=== PATIENT | female | born 1950 | race Caucasian/White ===

== ENCOUNTER 2019-11-16 19:20 | Emergency (ER) | payer MEDICARE, SELFPAY ==
[2019-11-16 19:32] VITALS: BP 150/65; PULSE 93; RESP 20; TEMP 36.8; O2SAT 97
--- NOTE | 2019-11-16 19:53 | ED.GENADULT ---
HPI - General Adult General Chief complaint: Eye Problems Stated complaint: R/eye red Time Seen by Provider: 11/16/19 19:53 Source: patient and RN notes reviewed Mode of arrival: ambulatory Limitations: no limitations History of Present Illness HPI narrative: 69-year-old female presents with complains of right eye redness for 1 day. No treatment. Loreto says her came home and told her that her eye was red otherwise she didn't known. Denies pain, itching, or drainage from eye. Denies injury or exacerbating factors. No relieving factors. Intermittent mild cough otherwise no other URI symptoms. Denies blurred vision, double vision, sensation of foreign body, or pain of eye with movement. Some parts of this dictation were generated by voice recognition software and may contain typographical and/or grammatical inaccuracies. Related Data Home Medications Medication Instructions Recorded Confirmed No Home Medications 11/16/19 11/16/19 Allergies Allergy/AdvReac Type Severity Reaction Status Date / Time meperidine Allergy Mild Unknown Verified 11/16/19 19:35 Review of Systems Constitutional: Comments: CONSTITUTIONAL: Denies fever, chills, sweats. EYES: Denies visual changes. Complains of redness to RT eye. Denies itching, pain, or drainage. ENT: Denies rhinorrhea, congestion, sore throat, otalgia. CARDIOVASCULAR: Denies chest pain, palpitations, edema. RESPIRATORY: Denies dyspnea, wheezing. Intermittent mild dry cough. GASTROINTESTINAL: Denies abdominal pain, nausea, vomiting, diarrhea. GENITOURINARY: Denies dysuria, hematuria, abnormal discharge. SKIN: Denies rash or itching. MUSCULOSKELETAL: Denies acute back pain, joint pain, or myalgia. NEUROLOGIC: Denies numbness or focal weakness. PSYCHIATRIC: Denies anxiety or depression. All systems reviewed & are unremarkable except as noted in HPI and below [facility] Past Medical History Medical History (Updated 11/19/19 @ 18:38 by LAUREL Deluna) Lower back pain Scoliosis Thyroid nodule Surgical History Surgical History (Updated 11/19/19 @ 18:38 by LAUREL Deluna) History of spinal surgery Lumbar decompression and fusion History of thyroid surgery Thyroid nodule removal Family History Family History Sibling Family history of primary malignant neoplasm of liver Family history of malignant neoplasm of uterus Family history of coronary artery disease Family history of malignant neoplasm of breast in first degree relative Family history of malignant neoplasm of kidney Father Family history of coronary artery disease Mother Family history of coronary artery disease Social History Social History Smoking status: Never smoker Alcohol intake: never Comments At time of signature, I have reviewed and agree with nursing past medical, surgical, social, and family history. Please see nursing chart for further information. There is no relevant family history pertinent to the presenting complaint. Exam Narrative: Exam Narrative: GENERAL: This is a well-nourished, well-developed patient, in no apparent distress. HEAD: normocephalic, atraumatic. EYES: PERRL. Sclera clear/white to LT eye only. Inner RT eye sclera @ 3 and 4 o'clock with jesusita and clear without drainage, swelling, or tenderness on palpation. No visible or palpable Hordeolum present, no drainable abscess. No foreign body or lesions were noted on eversion of RT upper eyelid. No tenderness on palpation or erythema. No concern for Abbie-orbital cellulitis or orbital cellulitis. RT vision exam 20/20 and LT 20/15 with glasses. EARS: External ears normal, auditory canals clear and without drainage, TMs normal without perforation. Hearing grossly intact. NOSE: External nose normal with no obvious nasal discharge, nares with mild redness, no rhinorrhea. THROAT: Muc
[2019-11-16 20:09] VITALS: BP 103/54; PULSE 77; RESP 20; O2SAT 97
== END 2019-11-16 20:09 | disposition home or self-care (01) ==
PROVIDERS: Emergency Provider Nurse Practitioner Family; PCP Family Medicine
DX: H11.31 Conjunctival hemorrhage, right eye (principal); M41.9 Scoliosis, unspecified
CPT/HCPCS: 99211; G0463

== ENCOUNTER 2019-12-16 10:51 | Outpatient (CLI) | payer MEDICARE, SELFPAY ==
[2019-12-16 11:14] LABS: Basophils Percent Auto 0.4 % (0.2-1.2); Eosinophils Absolute Auto 0.1 K/mm3 (0-0.3); Eosinophils Percent Auto 1.9 % (0-4.4); Hematocrit 39.9 % (37.0-47.0); Hemoglobin 12.6 g/dL (12.0-15.0); Immature Granulocyte Absolute 0.01 K/mm3 (0.00-0.031); Immature Granulocyte Percent A 0.2 % (0-0.5); Lymphocytes Absolute Auto 1.91 K/mm3 (0.9-3.2); Lymphocytes Percent Auto 40.5 % (18.3-44.2); Mean Corpuscular HGB Conc 31.6 g/dl (32-36); Mean Corpuscular Hemoglobin 29.5 pg (26-34); Mean Corpuscular Volume 93.4 fl (80-100); Mean Platelet Volume 10.5 fl (7.4-10.4); Monocytes Absolute Auto 0.4 K/mm3 (0.1-0.6); Monocytes Percent Auto 7.8 % (2.6-8.5); Neutrophils Absolute Auto 2.3 K/mm3 (1.3-6.7); Neutrophils Percent Auto 49.2 % (45.5-73.1); Platelet Count Result 305 k/mm3 (150-375); Red Blood Count 4.27 M/mm3 (4.2-5.4); Red Cell Distribution Width 13.2 % (11.5-14.5); White Blood Count 4.7 K/mm3 (4.5-10.0)
[2019-12-16 11:21] LABS: Rheumatoid Factor < 8.6 IU/ML (<12)
[2019-12-16 11:33] LABS: Iron 127 ug/dL (37-170)
[2019-12-16 11:43] LABS: Percent Iron Saturation 41 % (20-50)
== END 2019-12-16 10:52 | disposition home or self-care (01) ==
LOC: ANHLAB 10:53
PROVIDERS: PCP Family Medicine; Visit Provider Family Medicine
DX: M19.90 Unspecified osteoarthritis, unspecified site (principal); D64.9 Anemia, unspecified
CPT/HCPCS: 36415; 83540; 83550; 85025; 86430

== ENCOUNTER → 2020-01-26 10:31 | Outpatient (CLI) | payer MEDICARE, SELFPAY ==
--- NOTE | ~2020-01-26 | MM_ITS ---
EXAMINATION: MM screening falguni BI w marbella HISTORY: Screening mammogram TECHNIQUE: Craniocaudal and mediolateral oblique 3-D tomosynthesis images were obtained and synthetic 2-D images were generated. CAD analysis was submitted and interpreted. COMPARISON: 12/28/2017, 10/02/2015 bilateral digital screening mammogram examinations BREAST PARENCHYMAL COMPOSITION: There are scattered areas of fibroglandular density. FINDINGS: There is no evidence of suspicious mass, calcification, or architectural distortion to sugg est malignancy in either breast. There has been no suspicious interval change. IMPRESSION: 1. No mammographic evidence of malignancy. 2. Recommend routine screening mammography in one year. BI-RADS Category 1: Negative Reviewed, dictated and finalized at location A.
== END ==
PROVIDERS: PCP Family Medicine; Visit Provider Obstetrics & Gynecology
DX: Z12.31 Encounter for screening mammogram for malignant neoplasm of breast (principal)
CPT/HCPCS: 77063; 77067

== ENCOUNTER 2020-02-10 09:47 | Outpatient (CLI) | payer MEDICARE, SELFPAY ==
[2020-02-13 14:11] LABS: Testosterone Free 8.6 pg/mL (0.1-6.4); Testosterone Total 107 ng/dL (2-45)
== END 2020-02-10 09:48 | disposition home or self-care (01) ==
PROVIDERS: PCP Family Medicine; Visit Provider Obstetrics & Gynecology
DX: R79.89 Other specified abnormal findings of blood chemistry (principal)
CPT/HCPCS: 36415; 84402; 84403

== ENCOUNTER 2020-04-19 10:25 | Outpatient (CLI) | payer MEDICARE, SELFPAY ==
[2020-04-23 15:07] LABS: Testosterone Free 0.7 pg/mL (0.1-6.4); Testosterone Total 11 ng/dL (2-45)
== END 2020-04-19 10:26 | disposition home or self-care (01) ==
PROVIDERS: PCP Family Medicine; Visit Provider Obstetrics & Gynecology
DX: R79.89 Other specified abnormal findings of blood chemistry (principal)
CPT/HCPCS: 36415; 84402; 84403

== ENCOUNTER 2021-03-11 16:39 | Emergency (ER) | payer MEDICARE, SELFPAY ==
--- NOTE | ~2021-03-11 | XR_ITS ---
EXAMINATION: XR wrist LT min 3V DATE: 03/11/2021 17:05 INDICATION: Left-sided wrist pain post fall TECHNIQUE: Posteroanterior, ulnar deviation, oblique, and lateral views of the left wrist were obtain ed. COMPARISON: none FINDINGS: Diffuse osteopenia. 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 Alignment is otherwise normal. No fracture. Additional moderate severity osteoarthritis at the fifth distal phalangeal joint and mild osteoarthritis at the second an d fourth distal interphalangeal joints. Soft tissues are unremarkable. IMPRESSION: 1. No acute osseous abnormality. Reviewed, dictated and finalized at location A.
--- NOTE | ~2021-03-11 | XR_ITS ---
[XR ribs LT 2V w CXR 2V ] INDICATION: Left rib pain after fall TECHNIQUE: Frontal projection of the upper left ribs, frontal projection of the lower left ribs, obli que projection of all the left ribs, frontal inspiratory chest x-ray for interpretation. FINDINGS: There are no displaced rib fractures identified. There are no soft tissue abnormality see n. The lungs are clear. There is scoliosis. There are surgical changes of the lumbar spine. IMPRESSION: 1:No displaced rib fractures. Reviewed, dictated and finalized at location A.
[2021-03-11 16:50] VITALS: BP 131/78; PULSE 88; RESP 16; TEMP 37; O2SAT 99
--- NOTE | 2021-03-11 17:21 | ED.GENADULT ---
HPI - General Adult General Chief complaint: Fall Stated complaint: fall/rib pain Time Seen by Provider: 03/11/21 16:55 Source: patient and RN notes reviewed Mode of arrival: ambulatory Limitations: no limitations History of Present Illness HPI narrative: 70-year-old female presents with complaints of left rib cage pain status post fall for the past 4.5 hours. She reports while at a family member's house with a step down room, she kept walking and fell on her left side injuring left rib and left wrist. Loreto reports increasing pain throughout the day. Excedrin, last today at 10:00AM with little relief. Denies difficulty breathing or cough. Denies hitting head, seizure activity, syncopal episode, dizziness, or loss consciousness. No bruising area. No deformity. Exacerbating factors consist of taking a deep breath palpation of area. No relieving factors. Denies fever. No cardiac chest pain, wheezing, or shortness of breath. Denies abdominal pain, nausea, and vomiting. Tolerating intake well. LMP postmenopausal. Remains active. The patient reports she was diagnosed with COVID-19 August,. The patient reports she is not waiting for the results of a COVID-19 lab test. The patient reports she do not have chills, weakness, or fatigue. The patient reports she do not have a new or worsening cough. The patient reports she do not have any rhinorrhea, congestion, sore throat, loss of taste or smell, and diarrhea. Patient reports recently traveled to [place] within 2 weeks. Denies concerns for COVID-19 or exposures. At this time, patient is not suspected of having COVID-19. Complaints of left wrist pain for the past 4.5 hours. ?Excedrin, last today at 10:00AM with little relief. ?Symptoms worsen throughout the day. ?No numbness or tingling. No radiating pain. ?No swelling. No immobility, suspected foreign body, or abuse. Exacerbating factors consist of movement. Some relieving factor is rest. ?The dominant hand is the Right hand. Some parts of this dictation were generated by voice recognition software and may contain typographical and/or grammatical inaccuracies. Related Data Allergies Allergy/AdvReac Type Severity Reaction Status Date / Time meperidine Allergy Mild Unknown Verified 12/16/19 09:04 Review of Systems Review of Systems: Narrative: CONSTITUTIONAL: Denies fever, chills, sweats. EYES: Denies visual changes, redness, discharge. ENT: Denies rhinorrhea, congestion, sore throat, otalgia. CARDIOVASCULAR: Denies chest pain, palpitations, edema. RESPIRATORY: Denies dyspnea, wheezing, cough. GASTROINTESTINAL: Denies abdominal pain, nausea, vomiting, diarrhea. GENITOURINARY: Denies dysuria, hematuria, abnormal discharge. SKIN: Denies rash or itching. MUSCULOSKELETAL: Denies acute back pain, myalgia. Complains of left wrist pain, acute left rib cage pain status post fall. NEUROLOGIC: Denies numbness or focal weakness. PSYCHIATRIC: Denies anxiety or depression. All systems reviewed & are unremarkable except as noted in HPI and below. [facility] Past Medical History Medical History Arthritis Lower back pain Scoliosis Thyroid nodule Vision abnormalities Surgical History Surgical History History of spinal surgery Lumbar decompression and fusion History of thyroid surgery Thyroid nodule removal Family History Family History Sibling Family history of primary malignant neoplasm of liver Family history of malignant neoplasm of uterus Family history of coronary artery disease Family history of malignant neoplasm of breast in first degree relative Family history of malignant neoplasm of kidney Father Family history of coronary artery disease Mother Family history of coronary artery disease Social History Social History (Updated
[2021-03-11] MEDS: KETOROLAC (*BKC) 60 MG/2 ML VIAL IM (17:26)
== END 2021-03-11 17:54 | disposition home or self-care (01) ==
PROVIDERS: Emergency Provider Nurse Practitioner Family; PCP Family Medicine
DX: S20.212A Contusion of left front wall of thorax, initial encounter (principal); S63.502A Unspecified sprain of left wrist, initial encounter; W19.XXXA Unspecified fall, initial encounter; M19.90 Unspecified osteoarthritis, unspecified site; M41.9 Scoliosis, unspecified
CPT/HCPCS: 71046; 71100; 73110; 96372; 99214; G0463; J1885

== ENCOUNTER → 2021-03-27 14:13 | Outpatient (CLI) | payer MEDICARE, SELFPAY ==
--- NOTE | ~2021-03-27 | MM_ITS ---
EXAMINATION: MM screening falguni BI w marbella HISTORY: Screening mammogram TECHNIQUE: Craniocaudal and mediolateral oblique 3-D tomosynthesis images were obtained and synthetic 2-D images were generated. CAD analysis was submitted and interpreted. COMPARISON: 01/26/2020, 12/28/2017, 10/02/2015 bilateral digital screening mammogram examinations BREAST PARENCHYMAL COMPOSITION: There are scattered areas of fibroglandular density. FINDINGS: There is no evidence of suspicious mass, calcification, or architectural distortion to sugg est malignancy in either breast. There has been no suspicious interval change. IMPRESSION: 1. No mammographic evidence of malignancy. 2. Recommend routine screening mammography in one year. BI-RADS Category 1: Negative Reviewed, dictated and finalized at location A.
== END ==
PROVIDERS: PCP Family Medicine; Visit Provider Obstetrics & Gynecology
DX: Z12.31 Encounter for screening mammogram for malignant neoplasm of breast (principal)
CPT/HCPCS: 77063; 77067

== ENCOUNTER 2022-08-22 01:30 | Day surgery (SDC) | payer MEDICARE, SELFPAY ==
[2022-08-18 10:39] VITALS: BMI 22.8
[2022-08-22 09:57] VITALS: BP 109/96; PULSE 82; RESP 20; TEMP 36.1; O2SAT 98; BMI 22.8
[2022-08-22] MEDS: LACTATED RINGERS 1,000 ML 150 ML IV CONT (10:10)
--- NOTE | 2022-08-22 10:18 | WPDANESEPPF ---
Anes - Initial Pre Proc Eval Procedure: Operation Date: 08/22/22 11:00 Proposed Procedures p Screening Colonoscopy - Yandel Koch MD Date/Time: 08/22/22 10:18 Surgeon: Yandel Koch MD Pre Op Diagnosis: neoplasm screening Patient Data Age: 71 Gender: F Height: 1.6 m Weight: 58.6 kg Last Vital Signs Temp 97 F L 08/22/22 09:57 Pulse 82 08/22/22 09:57 Resp 20 08/22/22 09:57 BP 109/96 H 08/22/22 09:57 Pulse Ox 98 08/22/22 09:57 O2 Del Method Room Air 08/22/22 09:57 Allergies Allergy/AdvReac Type Severity Reaction Status Date / Time meperidine Allergy Mild Unknown Verified 08/22/22 09:55 Home Medications Medication Instructions Recorded Confirmed Type ibuprofen 600 mg tablet 600 mg PO QID PRN pain #60 tabs 03/11/21 08/18/22 Rx cetirizine 10 mg tablet (Zyrtec) 10 mg PO DAILY PRN allergy 10/25/21 08/18/22 Rx symptoms #90 tabs [id number]-blkblfbhxowfr-wohualez 250 1 tablet PO Q4-6H PRN Pain 08/18/22 08/18/22 History mg-250 mg-65 mg tablet (Excedrin Extra Strength) ckqrijn-esdizgqpkttwl-aybewzap 250 1 tablet PO Q4-6H PRN Migraine 08/18/22 08/18/22 History mg-250 mg-65 mg tablet (Excedrin Headache Migraine) Patient hx anesthesia problems: none Family hx anesthesia problems: none Results Review: All pre-operative results and documents have been reviewed as part of the pre-operative evaluation. [facility] Past Medical History Medical History Arthritis BMI 22.0-22.9, adult Lower back pain Scoliosis Thyroid nodule Vision abnormalities Surgical History Surgical History History of spinal surgery Lumbar decompression and fusion History of thyroid surgery Thyroid nodule removal Family History Family History Sibling Family history of primary malignant neoplasm of liver Family history of malignant neoplasm of uterus Family history of coronary artery disease Family history of malignant neoplasm of breast in first degree relative Family history of malignant neoplasm of kidney Father Family history of coronary artery disease Mother Family history of coronary artery disease Sibling Cerebrovascular accident Dementia Heart disease Diabetes mellitus Social History Social History Smoking status: Never smoker Second hand tobacco smoke exposure: No Alcohol intake: never Substance use: never Substance use type: does not use Living arrangements: with family 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 Gender identity (if verbalized by the patient): Female Sexual Orientation (if Verbalized by the Patient): Straight or Heterosexual Spiritual care concerns: No Anes - Eval Final PreProcedure Day of Procedure 08/22/22 10:18 Patient weight: normal Heart: regular rate and rhythm Lungs: clear to auscultation Airway: Mallampati scale class II Neurological: alert and oriented Last oral intake: >/= 8 hours ASA classification: II Emergent: no Anesthetic plan: proceed Anesthesia type and monitoring: general GIVS and standard monitoring Results Review: All pre-operative results and documents have been reviewed as part of the pre-operative evaluation. Informed Consent: The patient's anesthetic plan and its attendant risks and benefits were discussed with the patient/family/POA. Questions were solicited and answers provided to the satisfaction of the patient/family/POA.
--- NOTE | 2022-08-22 10:26 | PM.HPGS ---
History of Present Illness History of Present Illness Consent: Risks, benefits, and alternatives have been discussed and questions answered. Patient agrees to proceed with procedure. Chief complaint: neoplasm screening Narrative: Loreto Payton is a 71 year old female here for screening colonoscopy, last one more than 5 years ago. Review of Systems Constitutional: Constitutional: Denies headache(s) and Denies weakness Eyes: Eyes: Denies blurry vision ENT: Reports Normal hearing present, Denies headache(s) and Denies neck pain Cardiovascular: Cardiovascular: Denies chest pain and Denies dyspnea Respiratory: Respiratory: Denies dyspnea Gastrointestinal: Gastrointestinal: Reports no additional gastrointestinal complaints Genitourinary: Genitourinary: Denies dysuria Musculoskeletal: Musculoskeletal: Denies neck pain Integumentary/Breasts: Skin/Breast: Denies dry skin Neurologic: Reports Normal hearing present, Denies headache(s) and Denies weakness Psychiatric: Psychiatric: Denies anxiety Endocrine: Endocrine: Denies change in body appearance Hematologic/Lymphatic: Hematologic/Lymphatic: Denies easy bleeding Allergic/Immunologic: Allergic/Immunologic: Denies urticaria PMFSH Past Medical History Medical History Arthritis BMI 22.0-22.9, adult Lower back pain Scoliosis Thyroid nodule Vision abnormalities Surgical History Surgical History History of spinal surgery Lumbar decompression and fusion History of thyroid surgery Thyroid nodule removal Family History Family History Sibling Family history of primary malignant neoplasm of liver Family history of malignant neoplasm of uterus Family history of coronary artery disease Family history of malignant neoplasm of breast in first degree relative Family history of malignant neoplasm of kidney Father Family history of coronary artery disease Mother Family history of coronary artery disease Sibling Cerebrovascular accident Dementia Heart disease Diabetes mellitus Social History Social History Smoking status: Never smoker Second hand tobacco smoke exposure: No Alcohol intake: never Substance use: never Substance use type: does not use Living arrangements: with family 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 Gender identity (if verbalized by the patient): Female Sexual Orientation (if Verbalized by the Patient): Straight or Heterosexual Spiritual care concerns: No Meds Home Medications and Allergies Home Medications Medication Instructions Recorded Confirmed Type ibuprofen 600 mg tablet 600 mg PO QID PRN pain #60 tabs 03/11/21 08/18/22 Rx cetirizine 10 mg tablet (Zyrtec) 10 mg PO DAILY PRN allergy 10/25/21 08/18/22 Rx symptoms #90 tabs ksptjvo-bfvyivjurzght-jpgieslo 250 1 tablet PO Q4-6H PRN Pain 08/18/22 08/18/22 History mg-250 mg-65 mg tablet (Excedrin Extra Strength) [id number]-wnanzuszfpsgz-qdyyfxpb 250 1 tablet PO Q4-6H PRN Migraine 08/18/22 08/18/22 History mg-250 mg-65 mg tablet (Excedrin Headache Migraine) Allergies Allergy/AdvReac Type Severity Reaction Status Date / Time meperidine Allergy Mild Unknown Verified 08/22/22 09:55 Vital Signs Vital Signs - 24 hr 08/22/22 09:57 Temperature 97 F L Pulse Rate 82 Respiratory Rate 20 Blood Pressure 109/96 H Pulse Oximetry 98 Oxygen Delivery Room Air Exam Const: General: comfortable and no acute distress HENMT: Face/Nose/Sinus: Normal nares present Eyes: General: appearance normal, both eyes and all related structures Neck: Neck: no JVD Resp: Auscultation: clear to auscultation bilaterally Cardio: Rate: regular rate Rhythm: reg
[2022-08-22 10:54] VITALS: BP 120/68; PULSE 65; RESP 20; O2SAT 98
[2022-08-22 11:04] VITALS: BP 122/71; PULSE 65; RESP 20; O2SAT 98
[2022-08-22 11:14] VITALS: BP 127/76; PULSE 64; RESP 16; O2SAT 98
== END 2022-08-22 11:29 | disposition home or self-care (01) ==
PROVIDERS: PCP Family Medicine; Visit Provider Internal Medicine Gastroenterology
PROC: 0DJD8ZZ Inspection of Lower Intestinal Tract, Via Natural or Artificial Opening Endoscopic (ICD-10-PCS; CPT 45378; principal; 2022-08-22 11:00)
DX: Z12.11 Encounter for screening for malignant neoplasm of colon (principal); D12.0 Benign neoplasm of cecum; K57.30 Diverticulosis of large intestine without perforation or abscess without bleeding; K64.8 Other hemorrhoids
CPT/HCPCS: 45385; 88305; J2704; J7120

== ENCOUNTER 2022-11-05 08:34 | Outpatient (CLI) | payer MEDICARE, SELFPAY ==
--- NOTE | ~2022-11-05 | US_ITS ---
EXAMINATION: US carotid duplex BI DATE: 11/05/2022 09:15 INDICATION: Vertigo. Unspecified visual disturbance. TECHNIQUE: Grayscale, color Doppler, and pulsed Doppler images of the cervical carotid arteries were obtained. The degree of vessel stenosis is placed in one of the following categories: normal, <50%, 5 0-69%, >=70% but less than near-occlusion, near-occlusion, or total occlusion. Note that percent sten osis relative to normal distal artery lumen diameter is indirectly measured from velocity measurement s as described by Markie, et al. Radiology 2003; 229:340-346. COMPARISON: None. FINDINGS: RIGHT: The right common carotid artery (CCA) peak systolic velocity (PSV) is 72 cm/s. The right internal car otid artery (ICA) PSV is 80 cm/s. The right ICA end-diastolic velocity (EDV) is 33 cm/s. The right IC A/CCA PSV ratio is 1.1. Grayscale and color Doppler images yield an estimate of <50% diameter reducti on from plaque in the ICA. The external carotid artery (ECA) PSV is 97 cm/s. There is antegrade flow in the right vertebral artery. LEFT: The left CCA PSV is 80 cm/s. The left ICA PSV is 58 cm/s. The left ICA EDV is 18 cm/s. The left ICA/C CA PSV ratio is 0.7. Grayscale and color Doppler images yield an estimate of <50% diameter reduction from plaque in the ICA. The ECA PSV is 86 cm/s. There is antegrade flow in the left vertebral artery. IMPRESSION: 1. <50% stenosis in the right internal carotid artery. 2. <50% stenosis in the left internal carotid artery. Reviewed, dictated and finalized at location A. [facility]
--- NOTE | 2022-11-05 09:41 | ECHO_ITS ---
Patient Info Name: Loreto Payton Age: 72 years : 1950 Gender: Female Ht: 63 in Wt: 130 lbs BSA: 1.63 m2 HR: 66 bpm BP: 135 / 77 mmHg Technical Quality: Good Exam Date: 11/05/2022 10:14 AM Exam Location: [facility] Patient Status: Outpatient Admit Date: 11/05/2022 Staff Ordering Physician: Christen Menendez Horologist: Lacy Robison RDCS Attending Provider: Christen Menendez Referring Physician: Gemma LOKCWOOD; Exam Type: CA echo doppler color flow Study Info Indications R55 - Syncope and collapse Complete two-dimensional, color flow and Doppler transthoracic echocardiogram is performed. Summary 1. Complete two-dimensional, color flow and Doppler transthoracic echocardiogram is performed. 2. Left ventricular chamber dimension is normal. 3. Ventricular septum is sigmoid shaped. No LVOT obstruction. 4. Left ventricular systolic function is normal, estimated at 60-65%. 5. The left ventricular diastolic function is grade I diastolic dysfunction. 6. E/e' 6 is not elevated. 7. There is mild aortic valve sclerosis. 8. There is mild aortic valve regurgitation. Left Ventricle E/e' 6 is not elevated. Ventricular septum is sigmoid shaped. No LVOT obstruction. Left ventricular chamber dimension is normal. Left ventricular systolic function is normal, estimated at 60-65%. The left ventricular diastolic function is grade I diastolic dysfunction. Right Ventricle Right ventricular systolic function is normal and with normal TAPSE 1.8 cm. Right ventricular chamber dimension is normal. Left Atria Left atrial chamber dimension is normal. Right Atria Right atrial chamber dimension is normal. Aortic Valve The aortic valve is trileaflet. There is mild aortic valve sclerosis. There is no aortic valve stenosis. There is mild aortic valve regurgitation. Pulmonic Valve There is no pulmonic regurgitation. Mitral Valve There is no mitral valve stenosis. There is no mitral valve regurgitation. Tricuspid Valve There is no tricuspid valve regurgitation. Pericardium/Pleural There is no pericardial effusion. Inferior Vena Cava Normal inferior vena cava with >50% collapse upon inspiration consistent with normal right atrial pressure, 5 mmHg. Aorta The aortic root size at the sinus of Valsalva is normal. Left Ventricular Outflow Tract Name Value Normal LVOT 2D LVOT Diameter 2.0 cm LVOT Doppler LVOT Peak Gradient 3 mmHg LVOT Mean Gradient 2 mmHg LVOT VTI 17 cm LVOT VTI/AV VTI Ratio 0.7 LVOT Stroke Volume 52 ml LVOT CO 3.8 l/min LVOT CI 2.3 l/min/m2 Mitral Valve Name Value Normal MV Doppler
[2022-11-05 09:50] LABS: Hematocrit 39.4 % (37.0-47.0); Hemoglobin 12.5 g/dL (12.0-15.0); Mean Corpuscular HGB Conc 31.7 g/dl (32-36); Mean Corpuscular Hemoglobin 30.6 pg (26-34); Mean Corpuscular Volume 96.3 fl (80-100); Mean Platelet Volume 9.5 fl (7.4-10.4); Platelet Count Result 347 k/mm3 (150-375); Red Blood Count 4.09 M/mm3 (4.2-5.4); Red Cell Distribution Width 13.2 % (11.5-14.5); White Blood Count 6.1 K/mm3 (4.5-10.0)
[2022-11-05 10:05] LABS: Alanine Aminotransferase 17 U/L (6-35); Albumin Level 4.1 g/dL (3.5-5.1); Alkaline Phosphatase 64 U/L (38-126); Anion Gap 4 mmol/L (8-16); Aspartate Amino Transferase 20 U/L (14-36); Bilirubin,Total 0.4 mg/dL (0.2-1.3); Blood Urea Nitrogen 19 mg/dL (7-17); Calcium 8.4 mg/dL (8.4-10.2); Carbon Dioxide 31 mmol/L (22-30); Chloride 105 mmol/L (98-107); Cholesterol 212 mg/dL (0-200); Estimated Glomerular Filt Rate > 60; Glucose 100 mg/dL (65-110); HDL Direct 84 mg/dL; Sodium 140 mmol/L (137-145); Triglycerides 64 mg/dL (<150)
[2022-11-05 10:16] LABS: LDL Cholesterol Direct 89 mg/dL
== END 2022-11-05 08:35 | disposition home or self-care (01) ==
PROVIDERS: PCP Family Medicine; Visit Provider Nurse Practitioner Family
DX: Z12.11 Encounter for screening for malignant neoplasm of colon (principal); R55 Syncope and collapse; H53.9 Unspecified visual disturbance; E78.5 Hyperlipidemia, unspecified; M79.643 Pain in unspecified hand; D64.9 Anemia, unspecified; I65.23 Occlusion and stenosis of bilateral carotid arteries; I35.1 Nonrheumatic aortic (valve) insufficiency
CPT/HCPCS: 36415; 80053; 80061; 84443; 85027; 93306; 93880

== ENCOUNTER 2023-01-14 10:47 | Outpatient (CLI) | payer MEDICARE, SELFPAY ==
[2023-01-17 20:31] LABS: Varicella IgM Antibody <=0.90 (<=0.90)
== END 2023-01-14 10:48 | disposition home or self-care (01) ==
PROVIDERS: PCP Family Medicine; Visit Provider Internal Medicine Cardiovascular Disease
DX: R55 Syncope and collapse (principal); R94.31 Abnormal electrocardiogram [ECG] [EKG]; I35.1 Nonrheumatic aortic (valve) insufficiency; I35.8 Other nonrheumatic aortic valve disorders; Z13.9 Encounter for screening, unspecified
CPT/HCPCS: 36415; 86787

== ENCOUNTER 2023-08-17 12:41 | Emergency (ER) | payer MEDICARE, SELFPAY ==
--- NOTE | 2023-08-17 12:48 | ED.URI ---
HPI - URI/Sore Throat General Chief Complaint: Upper Respiratory Infection Stated Complaint: Cough,Bilateralt Ear Irritation,Sore Throat Time Seen by Provider: 08/17/23 12:51 Source: patient, RN notes reviewed and old records reviewed Mode of arrival: ambulatory Limitations: no limitations History of Present Illness HPI Narrative: 72-year-old female presents to the [facility] with complaints of cough, bilateral ear discomfort in a sore throat. Symptoms started on Thursday, 5 days ago. Denies any fevers. Patient reports intermittent dry and productive cough. Patient has a history bronchitis and pneumonia this time of year. States that she has tried calling her doctor twice today and was unable to get through. Related Data Home Medications Medication Instructions Recorded Confirmed cfdeikm-pyttqidszbsdz-vonnchmi 250 1 tablet PO Q4-6H PRN Pain 08/18/22 08/17/23 mg-250 mg-65 mg tablet (Excedrin Extra Strength) estradiol 0.01% (0.1 mg/gram) 1 applic vaginal DAILY 08/17/23 08/17/23 vaginal cream Allergies Allergy/AdvReac Type Severity Reaction Status Date / Time No Known Allergies Allergy Verified 08/17/23 12:42 Review of Systems Review of Systems: All systems reviewed & are unremarkable except as noted in HPI and below Constitutional: Constitutional: Reports as per HPI Eyes: Eyes: Reports no additional eye complaints ENT: Reports as per HPI Cardiovascular: Cardiovascular: Reports no additional cardiovascular complaints, Denies chest pain and Denies dyspnea Respiratory: Respiratory: Reports as per HPI, Reports chest congestion, Reports cough and Denies dyspnea Gastrointestinal: Gastrointestinal: Reports no additional gastrointestinal complaints, Denies abdominal pain, Denies nausea and Denies vomiting Musculoskeletal: Musculoskeletal: Reports no additional musculoskeletal complaints Integumentary/Breasts: Skin/Breast: Reports system reviewed and no additional complaints, except as docu Neurologic: Reports system reviewed and no additional complaints, except as documented Psychiatric: Psychiatric: Reports no additional psychiatric complaints Allergic/Immunologic: Allergic/Immunologic: Reports no additional allergic/immunologic complaints [facility] Past Medical History Medical History Allergies Arthritis BMI 22.0-22.9, adult Contracture of palmar fascia (Dupuytren's) Headache Lower back pain Scoliosis Thyroid nodule Vision abnormalities Surgical History Surgical History History of sinus surgery balloon History of spinal surgery Lumbar decompression and fusion History of thyroid surgery Thyroid nodule removal Family History Family History Sibling Family history of primary malignant neoplasm of liver Family history of malignant neoplasm of uterus Family history of coronary artery disease Family history of malignant neoplasm of breast in first degree relative Family history of malignant neoplasm of kidney Depression Father Family history of coronary artery disease Heart disease Mother Family history of coronary artery disease Heart disease Sibling Cerebrovascular accident Dementia Heart disease Diabetes mellitus Other Heart disease Social History Social History Smoking status: Never smoker Second hand tobacco smoke exposure: No Alcohol intake: never Substance use: never Substance use type: does not use Living arrangements: with family Occupation/Education: occupation 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
[2023-08-17 12:52] VITALS: BP 123/67; PULSE 73; RESP 18; TEMP 36.4; O2SAT 98
== END 2023-08-17 13:20 | disposition home or self-care (01) ==
PROVIDERS: Emergency Provider Nurse Practitioner; PCP Family Medicine
DX: J40 Bronchitis, not specified as acute or chronic (principal); J01.40 Acute pansinusitis, unspecified; M19.90 Unspecified osteoarthritis, unspecified site; M41.9 Scoliosis, unspecified
CPT/HCPCS: 99213; G0463

== ENCOUNTER 2024-01-04 13:44 | Emergency (ER) | payer MEDICARE, SELFPAY ==
--- NOTE | 2024-01-04 13:46 | ED.URI ---
HPI - URI/Sore Throat General Chief Complaint: Upper Respiratory Infection Stated Complaint: Sinus Problems and Cough Time Seen by Provider: 01/04/24 13:46 Source: patient Mode of arrival: ambulatory Limitations: no limitations History of Present Illness HPI Narrative: Loreto is a 73-year-old female patient presenting to the clinic today with complaints of sinus congestion and cough since . She reports she is bringing up some yellow phlegm. Denies shortness of breath, chest pain, fever, chills, or body aches MD elicited complaint: sore throat and nasal congestion Related Data Home Medications Medication Instructions Recorded Confirmed xlkefla-hfrohiqdforhw-dxcjtqlm 250 1 tablet PO Q4-6H PRN Pain 08/18/22 01/04/24 mg-250 mg-65 mg tablet (Excedrin Extra Strength) estradiol 0.01% (0.1 mg/gram) 1 applic vaginal DAILY 08/17/23 01/04/24 vaginal cream Allergies Allergy/AdvReac Type Severity Reaction Status Date / Time No Known Allergies Allergy Verified 01/04/24 13:52 Review of Systems Review of Systems: Pertinent positives per HPI. Patient denies any fever, chills, rash, headache, visual changes, dizziness, shortness of breath, chest pain, palpitations, nausea, vomiting, diarrhea, constipation, abdominal pain, or any urinary issues. [facility] Past Medical History Medical History Allergies Arthritis BMI 22.0-22.9, adult Contracture of palmar fascia (Dupuytren's) Headache Lower back pain Scoliosis Thyroid nodule Vision abnormalities Surgical History Surgical History History of sinus surgery balloon History of spinal surgery Lumbar decompression and fusion History of thyroid surgery Thyroid nodule removal Family History Family History Sibling Family history of primary malignant neoplasm of liver Family history of malignant neoplasm of uterus Family history of coronary artery disease Family history of malignant neoplasm of breast in first degree relative Family history of malignant neoplasm of kidney Depression Father Family history of coronary artery disease Heart disease Mother Family history of coronary artery disease Heart disease Sibling Cerebrovascular accident Dementia Heart disease Diabetes mellitus Other Heart disease Social History Social History (Reviewed 08/17/23 @ 19:10 by ANA Escoto Smoking status: Never smoker Second hand tobacco smoke exposure: No Alcohol intake: never Substance use: never Substance use type: does not use Living arrangements: with family Occupation/Education: occupation 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 There is no relevant family history pertinent to the patient complaint. Exam Narrative: General: Well-developed, well nourished, in no apparent distress Head: Normocephalic, atraumatic Eyes: Pupils equally round and reactive to light bilaterally, EOM intact, sclera and conjunctive clear, no discharge, lids normal Ears: TMs intact and congested, ear canals clear, no drainage, grossly hearing normal. Nose: Nares patent, clear nasal discharge, mild inflammation, no sinus tenderness. Mouth: Oral pharynx without lesions or masses, good dentition, MMM. Postnasal drip Neck: Supple, trachea midline, no enlargement of anterior or posterior cervical nodes, no thyroid masses or goiter palpable. Cardio: Regular rate and rhythm, s1 and s2 normal, no murmur appreciated. Resp: Clear to auscultation bilaterally, n
[2024-01-04 13:52] VITALS: BP 92/64; PULSE 83; RESP 18; TEMP 36.6; O2SAT 98
== END 2024-01-04 14:19 | disposition home or self-care (01) ==
PROVIDERS: Emergency Provider Nurse Practitioner Family; PCP Family Medicine
DX: R09.82 Postnasal drip (principal); J30.89 Other allergic rhinitis; M19.90 Unspecified osteoarthritis, unspecified site; M41.9 Scoliosis, unspecified; Z79.82 Long term (current) use of aspirin
CPT/HCPCS: 99213; G0463

== ENCOUNTER 2025-04-18 13:51 | Outpatient (CLI) | payer MEDICARE, SELFPAY ==
--- NOTE | ~2025-04-18 | MM_ITS ---
EXAMINATION: MM screening falguni BI w marbella HISTORY: Screening mammogram, family history of breast cancer in her sister. TECHNIQUE: Craniocaudal and mediolateral oblique 3-D tomosynthesis images were obtained and synthetic 2-D images were generated. CAD analysis was submitted and interpreted. COMPARISON: 03/27/2021, 01/26/2020 BREAST PARENCHYMAL COMPOSITION:Not Dense. There are scattered areas of fibroglandular density. FINDINGS: No suspicious mass, calcification, or architectural distortion are identified in either nadege ast to suggest malignancy. There has been no suspicious interval change. IMPRESSION: No mammographic evidence of malignancy. Recommend routine screening mammography in one year. BI-RADS Category 1: Negative Reviewed, dictated and finalized at location .
== END 2025-04-18 13:52 | disposition home or self-care (01) ==
PROVIDERS: PCP Obstetrics & Gynecology; Visit Provider Nurse Practitioner
DX: Z12.31 Encounter for screening mammogram for malignant neoplasm of breast (principal)
CPT/HCPCS: 77063; 77067

== ENCOUNTER 2025-06-24 14:02 | Emergency (ER) | payer OTHER, MEDICARE, SELFPAY ==
--- NOTE | ~2025-06-24 | XR_ITS ---
EXAMINATION: XR finger 3rd RT min 2V DATE: 06/24/2025 14:51 INDICATION: Pain at the right third proximal interphalangeal joint post fall 2 weeks prior TECHNIQUE: Dorsal palmar, lateral and 2 oblique views of the right third digit were obtained COMPARISON: Right fourth digit radiographs dated 07/19/2014 FINDINGS: Bone alignment is normal. Again seen is an old fracture deformity tuft of the right fourth distal phalanx. No acute fractures. Severe osteoarthritis with central erosions with gullwing configuration consistent with erosive osteoarthritis at the third distal interphalangeal joint. Mild osteoarthritis at the second proximal interphalangeal and fourth distal interphalangeal joints. Additional severe likely erosive osteoarthritis suggested but incompletely visualized at the second distal interphalangeal joint. Mild reticular soft tissue swelling at the third metacarpophalangeal joint. IMPRESSION: 1. Old healed fracture deformity of the right fourth distal phalanx. No acute osseous abnormality. 2. 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 Reviewed, dictated and finalized at location A. IMPRESSION: 1. Old healed fracture deformity of the right fourth distal phalanx. No acute o sseous abnormality. 2. Mild polyarticular osteoarthritis at a few of the interphalangeal joints inc luding severe erosive osteoarthritis at the third and likely second distal inte rphalangeal joints.
[2025-06-24 14:34] VITALS: BP 126/67; PULSE 82; RESP 16; TEMP 36.3; O2SAT 99
--- NOTE | 2025-06-24 14:54 | ED.UPPEXIN ---
HPI - Extremity Injury (Upper) General Chief Complaint: Extremity Injury, Upper Stated Complaint: INJURED R MIDDLE FINGER Time Seen by Provider: 06/24/25 14:54 Source: patient Mode of arrival: ambulatory Limitations: no limitations History of Present Illness HPI narrative: 72-year-old female presented for complaint of pain to the right middle finger. Onset 2 weeks. States she fell prior to onset. Endorses swelling has resolved. Has not taken anything for pain. She follows with a holistic doctor, and endorses arthritis. Related Data Home Medications ?Medication ?Instructions ?Recorded ?Confirmed ?Last Taken ?Type gvkwtod-cxbhqndbbhbit-kezelhhv 250 1 tablet PO Q4-6H PRN Pain 08/18/22 01/04/24 Unknown History mg-250 mg-65 mg tablet (Excedrin Extra Strength) estradiol 0.01% (0.1 mg/gram) 1 applic vaginal DAILY 08/17/23 01/04/24 Unknown History vaginal cream Allergies Allergy/AdvReac Type Severity Reaction Status Date / Time No Known Allergies Allergy Verified 06/24/25 14:32 Review of Systems Review of Systems: CONSTITUTIONAL: Denies body aches, fever, chills EYES: Denies visual changes ENT: Denies rhinorrhea, congestion CARDIOVASCULAR: Denies chest pain, palpitations, or edema. RESPIRATORY: Denies cough or dyspnea. SKIN: Denies rash, itching, or wounds. MUSCULOSKELETAL: reports right 3rd digit pain NEUROLOGIC: Denies headache, numbness, tingling, or weakness. All systems reviewed & are unremarkable except as noted in HPI and below PMFSH Past Medical History Medical History BMI 22.0-22.9, adult Hyperlipidemia Abnormal echocardiogram Near syncope Contracture of palmar fascia (Dupuytren's) Headache Allergies BMI 22.0-22.9, adult Vision abnormalities Arthritis Thyroid nodule Scoliosis Lower back pain Surgical History Surgical History History of sinus surgery balloon History of thyroid surgery Thyroid nodule removal History of spinal surgery Lumbar decompression and fusion Family History Family History Sibling Family history of primary malignant neoplasm of liver Family history of malignant neoplasm of uterus Family history of coronary artery disease Family history of malignant neoplasm of breast in first degree relative Family history of malignant neoplasm of kidney Depression Father Family history of coronary artery disease Heart disease Mother Family history of coronary artery disease Heart disease Sibling Cerebrovascular accident Dementia Heart disease Diabetes mellitus Other Heart disease Social History Social History Smoking status: Never smoker Second hand tobacco smoke exposure: No Alcohol intake: never Substance use: never Substance use type: does not use Living arrangements: with family Occupation/Education: occupation 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 Please see nursing chart for further information. There is no relevant family history pertinent to the presenting complaint Exam Narrative: GENERAL: Well-appearing, well-nourished, and in no acute distress. CHEST: Speaks in full sentences. No respiratory distress. HEART: Regular rate and rhythm. Normal and equal peripheral pulses. EXTREMITIES: right hand has normal strength and sensation, normal range of motion of digits but endorses pain with movement of right 3rd digit. mild erythema to 3rd MCP. No swelling or ecchymosis, No point tenderness. No open wounds, alignment normal, pulse palpable and equal bilaterally, skin warm, dry, pink. Capillary refill less than 3 seconds. SKIN: Warm, dry, no rash. NEURO: Alert and oriented x3. PSYCH: Normal mood and affect Course Course Emergency Course: Patient is aware of diagnosis, understands and agrees to treatment plan. Anticipatory guidance given. Patient agrees to follow-up as directed and is aware of reasons to seek care at the emergency department. Portions of this record may have been created with voice recognition software Level of Care: Express Care Visit Vital Signs Vital signs: Vital Signs Temperature 97.3 F L 06/24/25 14:34 Pulse Rate 82 06/24/25 14:34 Respiratory Rate 16 06/24/25 14:34 Blood Pressure 126/67 06/24/25 14:34 Pulse Oximetry 99 06/24/25 14:34 Oxygen Delivery Room Air 06/24/25 14:34 Temperature 97.3 F L 06/24/25 14:34 Pulse Rate 82 06/24/25 14:34 Respiratory Rate 16 06/24/25 14:34 Blood Pressure 126/67 06/24/25 14:34 Pulse Oximetry 99 06/24/25 14:34 Oxygen Delivery Room Air 06/24/25 14:34 Reviewed MDM - Extremity Injury (Upper) MDM Narrative Medical decision making narrative: Discussed physical exam findings and x-ray. Advised supportive measures and signs/symptoms to go to the ER. Pt is appropriate for outpt treatment and f/u. Differential Diagnosis Differential diagnosis: Likely finger sprain and dislocation of finger Imaging Data Radiologist's impression: Patient: Loreto Payton : 1950 MR#: [id number] Age: 74 Acct:[id number] Loc: [facility] ADM Date: 06/24/25Attending Dr: Ordering Physician: Era Presley APRN Date of Service: 06/24/25 Procedure(s): XR finger 3rd RT min 2V Accession Number(s): [id number] cc: Era Presley APRN; Tom Silva MD~ EXAMINATION: XR finger 3rd RT min 2V DATE: 06/24/2025 14:51 INDICATION: Pain at the right third proximal interphalangeal joint post fall 2 weeks prior TECHNIQUE: Dorsal palmar, lateral and 2 oblique views of the right third digit were obtained COMPARISON: Right fourth digit radiographs dated 07/19/2014 FINDINGS: Bone alignment is normal. Again seen is an old fracture deformity tuft of the right fourth distal phalanx. No acute fractures. Severe osteoarthritis with central erosions with gullwing configuration consistent with erosive osteoarthritis at the third distal interphalangeal joint. Mild osteoarthritis at the second proximal interphalangeal and fourth distal interphalangeal joints. Additional severe likely erosive osteoarthritis suggested but incompletely visualized at the second distal interphalangeal joint. Mild reticular soft tissue swelling at the third metacarpophalangeal joint. IMPRESSION: 1. Old healed fracture deformity of the right fourth distal phalanx. No acute osseous abnormality. 2. 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 Discharge Plan Discharge Clinical Impression: Joint pain in fingers of right hand Patient Disposition: Home Condition: Stable Instructions: Antibiotic Form, Arthralgia (ED) Additional Instructions: Rest and elevate the hand, activity as tolerated Apply ice 15-20 minute intervals several times a day You can use pain cream, Motrin and Tylenol as needed You can try a support glove for the arthritis Follow up with your primary care provider as needed Go to the ER for worsening Symptoms or concerns Patient Language: Romanian Prescriptions: No Action estradiol 0.01 % (0.1 mg/gram) cream 1 applic VAGINAL DAILY cetirizine [Zyrtec] 10 mg tablet 10 mg PO DAILY PRN (Reason: allergy symptoms) Qty: 90 0RF Excedrin Extra Strength 250-250-65 mg Tablet 1 tablet PO Q4-6H PRN (Reason: Pain) Follow-up/Referrals: Tom Silva MD [Primary Care Provider, Family Practice] Time of Disposition: 15:36
== END 2025-06-24 15:40 | disposition home or self-care (01) ==
PROVIDERS: Emergency Provider Nurse Practitioner Family; PCP Family Medicine
DX: M25.541 Pain in joints of right hand (principal); E78.5 Hyperlipidemia, unspecified; M19.90 Unspecified osteoarthritis, unspecified site
CPT/HCPCS: 73140; 99213; G0463

== ENCOUNTER 2025-09-26 14:26 | Emergency (ER) | payer MEDICARE, SELFPAY ==
[2025-09-26 14:38] VITALS: BP 128/68; PULSE 72; RESP 15; TEMP 36.2; O2SAT 97
--- NOTE | 2025-09-26 14:59 | ED_ITS ---
HPI - URI/Sore Throat General Chief Complaint: Upper Respiratory Infection Stated Complaint: SINUS CONGESTION Time Seen by Provider: 09/26/25 14:59 Source: patient, RN notes reviewed and old records reviewed Mode of arrival: ambulatory Limitations: no limitations History of Present Illness HPI Narrative: 74-year-old female presents to the [facility] with complaints of sinus congestion that started on Thanksgiving approximately 10 days ago. Reports cough and drainage. States that she has tried Claritin, Tylenol sinus. Also has tried multiple holistic medications to help her symptoms with no relief. Denies any fevers, chest pain, shortness of breath. Related Data Home Medications ?Medication ?Instructions ?Recorded ?Confirmed ?Last Taken ?Type avdordl-brqwzzjfxxdxj-obyiqwlp 250 1 tablet PO Q4-6H P RN Pain 08/18/22 01/04/24 Unknown History mg-250 mg-65 mg tablet (Excedrin Extra Strength) estradiol 0.01% (0.1 mg/gram) 1 applic vaginal DAILY 1 01/04/24 Unknown History vaginal cream Allergies Allergy/AdvReac Type Severity Reaction Status Date / Time No Known Allergies Allergy Verified 06/24/25 14:32 Review of Systems Review of Systems: All systems reviewed & are unremarkable except as noted in HPI and below Constitutional: Constitutional: Reports no additional constitutional complaints ENT: Reports as per HPI Cardiovascular: Cardiovascular: Reports no additional cardiovascular complaints, Denies chest pain and Denies dyspnea Respiratory: Respiratory: Reports as per HPI, Denies chest congestion, Reports cough and Denies dyspnea Musculoskeletal: Musculoskeletal: Reports no additional musculoskeletal complaints Integumentary/Breasts: Skin/Breast: Reports system reviewed and no additional complaints, except as docu PMFSH Past Medical History Medical History BMI 22.0-22.9, adult Hyperlipidemia Abnormal echocardiogram Near syncope Contracture of palmar fascia (Dupuytren's) Headache Allergies BMI 22.0-22.9, adult Vision abnormalities Arthritis Thyroid nodule Scoliosis Lower back pain Surgical History Surgical History History of sinus surgery balloon History of thyroid surgery Thyroid nodule removal History of spinal surgery Lumbar decompression and fusion Family History Family History Sibling Family history of primary malignant neoplasm of liver Family history of malignant neoplasm of uterus Family history of coronary artery disease Family history of malignant neoplasm of breast in first degree relative Family history of malignant neoplasm of kidney Depression Father Family history of coronary artery disease Heart disease Mother Family history of coronary artery disease Heart disease Sibling Cerebrovascular accident Dementia Heart disease Diabetes mellitus Other Heart disease Social History Social History Smoking status: Never smoker Second hand tobacco smoke exposure: No Alcohol intake: never Substance use: never Substance use type: does not use Living arrangements: with family Occupation/Education: occupation 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 There is no relevant family history pertinent to the patient complaint. Exam Const: General: cooperative, healthy appearing, comfortable, no acute distress, well developed, alert and well nourished Nutritional Appearance: well nourished Orientation/consciousness: patient oriented x3 Limitations: no limitations HENMT: Head: normal to inspection Ears: hearing grossly normal bilaterally, external ears normal, TM's normal bilaterally, EAC's normal, mastoids normal and no periauricular adenopathy Mouth: Yes Normal oral and palatal mucosa present, Yes lip normal, Yes tongue normal and Yes moist mucous membranes Throat: posterior oropharynx normal, uvula midline, postnasal drainage and no uvular edema Eyes: General: appearance normal, both eyes and all related structures Alignment and Position: alignment normal Neck: Neck: normal visual inspection, full ROM, no lymphadenopathy and no meningeal signs Chest: Chest palpation & inspection: normal inspection of the chest Resp: Effort & Inspection: normal respiratory effort and able to speak in complete sentences Auscultation: clear to auscultation bilaterally, no crackles, no rales, no rhonchi and no wheezes Cardio: Rate: regular rate Skin: General skin exam: normal color and no rashes or lesions noted Neuro: General: patient oriented x3, gait normal, moves all extremities and no meningeal signs Cognition (Neuro): normal cognition Speech: normal speech Gait exam (Neuro): Normal gait present Extrem: General: normal to inspection, full ROM, capillary refill normal and normal gait Psych: Appearance: grossly normal and well kempt Mental Status: mental status grossly normal Speech and movement: Normal speech and movement present and Clear speech present Affect: normal affect Attitude: cooperative Course Course Level of Care: Express Care Visit Vital Signs Vital signs: Vital Signs Temperature 97.2 F L 09/26/25 14:38 Pulse Rate 72 09/26/25 14:38 Respiratory Rate 15 09/26/25 14:38 Blood Pressure 128/68 09/26/25 14:38 Pulse Oximetry 97 09/26/25 14:38 Temperature 97.2 F L 09/26/25 14:38 Pulse Rate 72 09/26/25 14:38 Respiratory Rate 15 09/26/25 14:38 Blood Pressure 128/68 09/26/25 14:38 Pulse Oximetry 97 09/26/25 14:38 reviewed MDM MDM Narrative Medical decision making narrative: Patient sitting in exam room. Patient is nontoxic, vitals stable. Patient with almost 2 weeks of sinus congestion, cough, postnasal drainage. Patient is appropriate for outpatient treatment with close follow-up Discharge instructions reviewed with patient, as well as provided in writing per nursing staff. The instructions also include specific and strict return/GO TO THE ER as well as f/u information. All questions have been answered, and the patient deny any further questions with discharge and discharge plan. Some parts of this dictation were generated by voice recognition software and may contain typographical and/or grammatical inaccuracies. Differential Diagnosis Differential Diagnosis: Differential diagnostic considerations for upper respiratory infection include upper respiratory infection, croup, otitis media, sinusitis, viral infection, bronchitis, influenza, pharyngitis, strep, uvulitis.? Discharge Plan Discharge Clinical Impression: PND (post-nasal drip) Sinusitis Qualifiers: Sinusitis location: pansinusitis Chronicity: acute Recurrence: not specified as recurrent Qualified Code(s): J01.40 - Acute pansinusitis, unspecified Patient Disposition: Home Condition: Stable Instructions: Antibiotic Form, Sinusitis (ED), Postnasal Drip (DC) Additional Instructions: It is very important to treat your symptoms. Drink plenty of water, Gatorade, Pedialyte, ice pops or Jell-O. -Alternate Tylenol and Motrin per package directions for fever or pain. You can alternate every 4 hours -Antihistamine medication such as Zyrtec/Claritin during the day can help improve symptoms. -doing daily nasal irrigations can help relieve pressure your sinuses. Things like a Neti pot -Use Flonase twice a day for 5 days then daily to help reduce the inflammation and dry up your sinuses. -You can also use Mucinex. Be sure to drink plenty of water with this medication at least 8 ounces with every dose and it is important to drink 8 to 10 glasses of water per day. Water is a natural decongestant -Eat and drink things that are easy to swallow, like tea or soup, or popsicles. -Oral rinses such as: Salt water gargles and/or may use topical anesthetic (eg. Chloraseptic spray) or lozenges to relieve dryness or throat pain). -Frequent hand washing or hand electric crane operator is one of the best ways to prevent spread of infection. -Using a vaporizer or humidifier at night will also help thin secretions and help with coughing up phlegm. -Follow up with primary care provider in 7-10 days if condition is not improving - For new or worsening symptoms go directly to the nearest ER Patient Language: Prydeinig Prescriptions: New doxycycline monohydrate 100 mg tablet 100 mg PO BID Qty: 14 0RF No Action estradiol 0.01 % (0.1 mg/gram) cream 1 applic VAGINAL DAILY cetirizine [Zyrtec] 10 mg tablet 10 mg PO DAILY PRN (Reason: allergy symptoms) Qty: 90 0RF Excedrin Extra Strength 250-250-65 mg Tablet 1 tablet PO Q4-6H PRN (Reason: Pain) Follow-up/Referrals: Tom Silva MD [Primary Care Provider, Family Practice] - 2 Weeks Clinical Impression: PND (post-nasal drip); Sinusitis Time of Disposition: 15:11
== END 2025-09-26 15:15 | disposition home or self-care (01) ==
PROVIDERS: Emergency Provider Nurse Practitioner; PCP Family Medicine
DX: R09.82 Postnasal drip (principal); J01.40 Acute pansinusitis, unspecified; E78.5 Hyperlipidemia, unspecified; M19.90 Unspecified osteoarthritis, unspecified site; M41.9 Scoliosis, unspecified
CPT/HCPCS: 99213; G0463